=== PATIENT | male | born 1995 | race Caucasian/White ===

== ENCOUNTER 2020-01-27 22:30 | Emergency (ER) | payer BC, MEDICAID ==
--- NOTE | 2020-01-27 23:15 | EDM.PDOC ---
ED HPI GENERAL MEDICAL PROBLEM - General Chief Complaint: Abdominal Pain Stated Complaint: SHAKEY ABDOMINAL PAIN ITCHEY CHEST Time Seen by Provider: 01/27/20 22:58 Source of Information: Reports: Patient History Limitations: Reports: No Limitations - History of Present Illness INITIAL COMMENTS - FREE TEXT/NARRATIVE: 24-year-old male. Tonight around 9:30 PM he had onset of right upper quadrant abdominal pain and had body shaking. He states about a week ago he had a similar episode but not as severe as tonight. During this time that he was shaking became somewhat hot and sweaty though he did not check a temperature. He was also nauseated but no vomiting. Complaint of diarrhea that has been going on for several days if not several weeks. He has been able to drink fluids today and eat okay but he has not tried since he had this spell at 9:30 PM. He denies any cough. Has no history of gallbladder disease or liver problems. Right Upper Abdominal Pain Score (Numeric/FACES): 6 - Related Data Allergies Allergy/AdvReac Type Severity Reaction Status Date / Time No Known Allergies Allergy Verified 01/27/20 22:48 Home Meds: Home Meds . [No Known Home Meds] 01/27/20 [History] Past Medical History - Past Health History Medical/Surgical History: Denies Medical/Surgical History Social & Family History - Tobacco Use Smoking Status *Q: Never Smoker - Recreational Drug Use Recreational Drug Use: No ED ROS GENERAL - Review of Systems Review Of Systems: See Below Constitutional: Reports: Fever. Denies: Chills HEENT: Reports: No Symptoms Respiratory: Reports: Cough. Denies: Shortness of Breath Cardiovascular: Denies: Chest Pain Endocrine: Reports: No Symptoms GI/Abdominal: Reports: Abdominal Pain, Diarrhea, Nausea. Denies: Black Stool, Bloody Stool, Vomiting : Reports: Dysuria Musculoskeletal: Reports: No Symptoms Skin: Reports: No Symptoms Neurological: Reports: No Symptoms Psychiatric: Reports: No Symptoms Hematologic/Lymphatic: Reports: No Symptoms ED EXAM, GI/ABD - Physical Exam Exam: See Below Exam Limited By: No Limitations General Appearance: Alert, WD/WN, No Apparent Distress, Other (No longer having the shaking or the nausea that has resolved) Eyes: Bilateral: Normal Appearance Ears: Normal External Exam, Normal Canal, Normal TMs Nose: Normal Inspection Throat/Mouth: Normal Inspection, Normal Lips, Normal Oropharynx, Normal Voice, No Airway Compromise Head: Normocephalic Neck: Supple Respiratory/Chest: No Respiratory Distress, Lungs Clear, Normal Breath Sounds Cardiovascular: Regular Rate, Rhythm, No Murmur GI/Abdominal Exam: Soft, Other (No significant tenderness in the right upper quadrant on palpation and no masses are noted, lower abdomen is nontender on palpation his left upper quadrant is nontender. He states he feels the shaking in the right upper quadrant but his whole body is not shaking presently.) Back Exam: Normal Inspection, Full Range of Motion Extremities: Normal Inspection, Normal Range of Motion Neurological: Alert, Oriented Psychiatric: Normal Affect, Normal Mood. No: Anxious, Tearful Skin Exam: Warm, Dry. No: Diaphoretic Course - Vital Signs Last Recorded V/S: Last Vital Signs Temp 98.7 F 01/27/20 22:46 Pulse 94 01/27/20 22:46 Resp 16 01/27/20 22:46 BP 117/94 H 01/27/20 22:46 Pulse Ox 100 01/27/20 22:46 - Orders/Labs/Meds Orders: Active Orders 24 hr Category Date Time Status Abdomen Ltd [US] Stat Exams 01/27/20 23:08 Taken Labs: Laboratory Tests 01/27/20 01/27/20 01/27/20 Range/Units 23:00 23:00 23:23 WBC 6.39 (4.23-9.07) K/mm3 RBC 5.08 (4.63-6.08) M/mm3 Hgb 15.6 (13.7-17.5) gm/dl Hct 45.7 (40.1-51.0) % MCV 90.0 (79.0-92.2) fl MCH 30.7 (25.7-32.2) pg MCHC 34.1 (32.2-35.5) g/dl RDW Std Deviation 39.5 (35.1-43.9) fL Plt Count 295 (163-337) K/mm3 MPV 10.2 (9.4-12.3) fl Neut % (Auto) 58.1 (34.0-67.9) % Lymph % (Auto) 29.1 (21.8-53.1) % [place] % (Auto) 8.6 (5.3-12.2) % Eos % (Auto) 3.9 (0.8-7.0) Baso % (Auto) 0.3 (0.1-1.2) % Neut # (Auto) 3.71 (1.78-5.38) K/mm3 Lymph # (Auto) 1.86 (1.32-3.57) K/mm3 [place] # (Auto) 0.55 (0.30-0.82) K/mm3 Eos # (Auto) 0.25 (0.04-0.54) K/mm3 Baso # (Auto) 0.02 (0.01-0.08) K/mm3 Sodium 140 (136-145) mEq/L Potassium 3.5 (3.5-5.1) mEq/L Chloride 103 (98-107) mEq/L Carbon Dioxide 28 (21-32) mEq/L Anion Gap 12.5 (5-15) BUN 19 H (7-18) mg/dL Creatinine 1.1 (0.7-1.3) mg/dL Est Cr Clr Drug Dosing 112.19 mL/min Estimated GFR (MDRD) > 60 (>60) mL/min BUN/Creatinine Ratio 17.3 (14-18) Glucose 126 H (74-106) mg/dL Lactic Acid 0.9 (0.4-2.0) mmol/L Calcium 8.6 (8.5-10.1) mg/dL Total Bilirubin 0.6 (0.2-1.0) mg/dL AST 22 (15-37) U/L ALT 44 (16-63) U/L Alkaline Phosphatase 58 (46-116) U/L Total Protein 7.9 (6.4-8.2) g/dl Albumin 4.2 (3.4-5.0) g/dl Globulin 3.7 gm/dL Albumin/Globulin Ratio 1.1 (1-2) Lipase 144 (73-393) U/L Urine Color (Yellow) Urine Appearance (Clear) Urine pH (5.0-8.0) Ur Specific Hancock (1.005-1.030) Urine Protein (Negative) Urine Glucose (UA) (Negative) Urine Ketones (Negative) Urine Occult Blood (Negative) Urine Nitrite (Negative) Urine Bilirubin (Negative) Urine Urobilinogen (0.2-1.0) Ur Leukocyte Esterase (Negative) Urine RBC (0-5) /hpf Urine WBC (0-5) /hpf Ur Squamous Epith Cells (0-5) /hpf Urine Bacteria (FEW) /hpf Urine Mucus (FEW) /hpf Urine Opiates Screen (ZHIZLI=700) Ur Buprenorphine Scrn (CUTOFF=10) Ur Oxycodone Screen (QHB6XG=397) Urine Methadone Screen (QXV8HP=044) Ur Propoxyphene Screen (WBTLZT=506) Ur Barbiturates Screen (FCHAAY=078) Ur Tricyclics Screen (EORNQW=708) Ur Phencyclidine Scrn (CUTOFF=25) Ur Amphetamine Screen (VFTAIU=055) U Methamphetamines Scrn (RHESBF=404) U Benzodiazepines Scrn (OBVHOR=095) U Cocaine Metab Screen (QIKREN=081) U Marijuana (THC) Screen (CUTOFF=50) 01/28/20 01/28/20 Range/Units 00:20 00:20 WBC (4.23-9.07) K/mm3 RBC (4.63-6.08) M/mm3 Hgb (13.7-17.5) gm/dl Hct (40.1-51.0) % MCV (79.0-92.2) fl MCH (25.7-32.2) pg MCHC (32.2-35.5) g/dl RDW Std Deviation (35.1-43.9) fL Plt Count (163-337) K/mm3 MPV (9.4-12.3) fl Neut % (Auto) (34.0-67.9) % Lymph % (Auto) (21.8-53.1) % [place] % (Auto) (5.3-12.2) % Eos % (Auto) (0.8-7.0) Baso % (Auto) (0.1-1.2) % Neut # (Auto) (1.78-5.38) K/mm3 Lymph # (Auto) (1.32-3.57) K/mm3 [place] # (Auto) (0.30-0.82) K/mm3 Eos # (Auto) (0.04-0.54) K/mm3 Baso # (Auto) (0.01-0.08) K/mm3 Sodium (136-145) mEq/L Potassium (3.5-5.1) mEq/L Chloride (98-107) mEq/L Carbon Dioxide (21-32) mEq/L Anion Gap (5-15) BUN (7-18) mg/dL Creatinine (0.7-1.3) mg/dL Est Cr Clr Drug Dosing mL/min Estimated GFR (MDRD) (>60) mL/min BUN/Creatinine Ratio (14-18) Glucose (74-106) mg/dL Lactic Acid (0.4-2.0) mmol/L Calcium (8.5-10.1) mg/dL Total Bilirubin (0.2-1.0) mg/dL AST (15-37) U/L ALT (16-63) U/L Alkaline Phosphatase (46-116) U/L Total Protein (6.4-8.2) g/dl Albumin (3.4-5.0) g/dl Globulin gm/dL Albumin/Globulin Ratio (1-2) Lipase (73-393) U/L Urine Color Light yellow (Yellow) Urine Appearance Clear (Clear) Urine pH 6.0 (5.0-8.0) Ur Specific [place] 1.020 (1.005-1.030) Urine Protein Negative (Negative) Urine Glucose (UA) Negative (Negative) Urine Ketones Negative (Negative) Urine Occult Blood Negative (Negative) Urine Nitrite Negative (Negative) Urine Bilirubin Negative (Negative) Urine Urobilinogen 0.2 (0.2-1.0) Ur Leukocyte Esterase Negative (Negative) Urine RBC Not seen (0-5) /hpf Urine WBC 0-5 (0-5) /hpf Ur Squamous Epith Cells 0-5 (0-5) /hpf Urine Bacteria Rare (FEW) /hpf Urine Mucus Rare (FEW) /hpf Urine Opiates Screen Negative (BKTAYQ=294) Ur Buprenorphine Scrn Negative (CUTOFF=10) Ur Oxycodone Screen Negative (DQK1EK=766) Urine Methadone Screen Negative (CTS0DZ=596) Ur Propoxyphene Screen Negative (PVCIYS=899) Ur Barbiturates Screen Negative (JAUZCN=519) Ur Tricyclics Screen Negative (PJRYTL=606) Ur Phencyclidine Scrn Negative (CUTOFF=25) Ur Amphetamine Screen Negative (KAUEZK=242) U Methamphetamines Scrn Negative (INRNOV=892) U Benzodiazepines Scrn Negative (BAGRLI=000) U Cocaine Metab Screen Negative (YTJUFW=284) U Marijuana (THC) Screen Negative (CUTOFF=50) - Radiology Interpretation Free Text/Narrative:: Sound of the gallbladder shows gallbladder sludge but no gallstones and the gallbladder is slightly distended. There is no gallbladder wall thickening or pericholecystic fluid noted. - Re-Assessments/Exams Free Text/Narrative Re-Assessment/Exam: 01/28/20 00:22 To the patient regarding the ultrasound results. He will need to follow-up with the family doctor for possibly a HIDA scan as an outpatient. 01/28/20 00:50 To the patient regarding his blood work and his urinalysis. All the parameters appear to be within normal limits. He is to follow-up with the family doctor for evaluation of his gallbladder with a HIDA scan. Departure - Departure Time of Disposition: 00:50 Disposition: Home, Self-Care 01 Condition: Good Clinical Impression: Right upper quadrant abdominal pain, Gallbladder sludge - Discharge Information *PRESCRIPTION DRUG MONITORING PROGRAM REVIEWED*: Not Applicable *COPY OF PRESCRIPTION DRUG MONITORING REPORT IN PATIENT LADAN: Not Applicable Instructions: Biliary Dyskinesia Referrals: Juanita Shi PA-C [Physician Frame Stripper] - Forms: ED Department Discharge Additional Instructions: Avoid all oily, greasy and fried foods, you need to follow-up with the family provider for recheck this coming week and possibly get a HIDA scan as an outpatient, if there is marked worsening of your symptoms or you develop a fever greater than 101 or if you have persistent nausea and vomiting return to the ER Sepsis Event Note - Evaluation Sepsis Screening Result: No Definite Risk - Focused Exam Vital Signs: Vital Signs Temp Pulse Resp BP Pulse Ox 01/27/20 22:46 98.7 F 94 16 117/94 H 100 Date Exam was Performed: 01/28/20 Time Exam was Performed: 00:50 - My Orders Last 24 Hours: My Active Orders 01/27/20 23:08 Abdomen Ltd [US] Stat - Assessment/Plan Last 24 Hours: My Active Orders 01/27/20 23:08 Abdomen Ltd [US] Stat
--- NOTE | 2020-01-28 10:10 | US ---
Limited abdominal ultrasound: Multiple real-time images of the upper right abdomen were obtained. Liver shows no focal parenchymal abnormality. Gallbladder shows no shadowing gallstones. Sludge is felt to be present within the gallbladder. No gallbladder wall thickening or biliary duct dilatation is seen. Right kidney shows no hydronephrosis or mass. Right kidney has a length of 10.6 cm. Pancreas is poorly seen due to bowel gas. Inferior vena cava is patent. Portal vein shows normal hepatopedal flow. Impression: 1. Small amount of gallbladder sludge. No shadowing gallstones, gallbladder wall thickening or biliary duct dilatation is seen. 2. Mostly obscured pancreas. Diagnostic code #2 This report was dictated in MDT I agree with preliminary report from [facility], finalized on 01/28/20, 1:10 AM Central Daylight Time
== END 2020-01-28 01:07 | disposition home or self-care (01) ==
LOC: JD.ED 22:30
DX: K82.8 Other specified diseases of gallbladder (principal)
CPT/HCPCS: 36415; 76705; 76705-26; 80053; 80306; 81001; 83605; 83690; 85025; 99283; 99284-25